=== PATIENT | female | born 1955 | race Caucasian/White ===

== ENCOUNTER 2018-10-27 14:07 | Outpatient (CLI) | payer OTHER | END 2018-10-27 14:10 | disposition home or self-care (01) | LOC: SONOGRAMA 14:07 | DX: S43.012A Anterior subluxation of left humerus, initial encounter (principal) ==

== ENCOUNTER 2019-01-06 13:15 | Outpatient (CLI) | payer OTHER | END 2019-01-06 13:18 | disposition home or self-care (01) | LOC: LAB 13:15 → CERTIFICAD 13:15 | DX: Z11.3 Encounter for screening for infections with a predominantly sexual mode of transmission (principal) ==

== ENCOUNTER 2019-02-10 15:12 | Outpatient (CLI) | payer OTHER | END 2019-02-10 15:22 | disposition home or self-care (01) | LOC: LAB 15:12 | DX: Z11.59 Encounter for screening for other viral diseases (principal) ==

== ENCOUNTER → 2019-08-25 | Outpatient (CLI) | payer OTHER | END | disposition home or self-care (01) | LOC: MAMO-SONO 10:30 | DX: Z12.31 Encounter for screening mammogram for malignant neoplasm of breast (principal) ==

== ENCOUNTER 2019-08-27 12:57 | Outpatient (CLI) | payer OTHER | END 2019-08-27 13:04 | disposition home or self-care (01) | LOC: NUCLEAR 12:57 | DX: M81.0 Age-related osteoporosis without current pathological fracture (principal) ==

== ENCOUNTER 2020-08-18 10:00 | Outpatient (CLI) | payer OTHER | END 2020-08-18 15:00 | disposition home or self-care (01) | LOC: PPH VACUNA 10:00 | DX: Z23 Encounter for immunization (principal) ==

== ENCOUNTER 2020-11-14 10:28 | Outpatient (CLI) | payer OTHER | END 2020-11-14 15:00 | disposition home or self-care (01) | LOC: PPH VACUNA 10:28 | DX: Z23 Encounter for immunization (principal) ==

== ENCOUNTER → 2021-03-27 12:48 | Outpatient (CLI) | payer OTHER | END | disposition home or self-care (01) | LOC: LAB 12:48 | DX: U07.1 COVID-19 (principal) ==

== ENCOUNTER 2021-08-27 08:00 | Outpatient (CLI) | payer OTHER | END 2021-08-27 08:30 | disposition home or self-care (01) | LOC: PPH VACUNA 08:00 | PROVIDERS: ATTEND Emergency Medicine Pediatric Emergency Medicine | DX: Z23 Encounter for immunization (principal) ==

== ENCOUNTER → 2021-11-21 12:32 | Outpatient (CLI) | payer OTHER | END | disposition home or self-care (01) | LOC: LAB 12:32 | PROVIDERS: ATTEND Internal Medicine | DX: Z20.828 Contact with and (suspected) exposure to other viral communicable diseases (principal) ==

== ENCOUNTER 2021-11-23 12:09 | Outpatient (CLI) | payer OTHER | END 2021-11-23 12:19 | disposition home or self-care (01) | LOC: LAB 12:09 | DX: Z20.828 Contact with and (suspected) exposure to other viral communicable diseases (principal); U07.1 COVID-19 ==

== ENCOUNTER 2021-11-29 12:35 | Outpatient (CLI) | payer OTHER | END 2021-11-29 12:38 | disposition home or self-care (01) | LOC: LAB 12:35 | DX: Z20.828 Contact with and (suspected) exposure to other viral communicable diseases (principal) ==

== ENCOUNTER 2022-03-01 08:00 | Outpatient (CLI) | payer OTHER | END 2022-03-01 08:30 | disposition home or self-care (01) | LOC: PPH VACUNA 08:00 | PROVIDERS: ATTEND Emergency Medicine Pediatric Emergency Medicine | DX: Z23 Encounter for immunization (principal) ==

== ENCOUNTER 2022-08-12 10:54 | Outpatient (CLI) | payer OTHER | END 2022-08-12 11:00 | disposition home or self-care (01) | LOC: PPH VACUNA 10:54 | PROVIDERS: ATTEND Emergency Medicine Pediatric Emergency Medicine | DX: Z23 Encounter for immunization (principal) ==

== ENCOUNTER 2022-08-14 08:00 | Outpatient (CLI) | payer OTHER | END 2022-08-14 08:05 | disposition home or self-care (01) | LOC: PPH VACUNA 08:00 | PROVIDERS: ATTEND Emergency Medicine Pediatric Emergency Medicine | DX: Z23 Encounter for immunization (principal) ==

== ENCOUNTER 2023-01-09 09:59 | Outpatient (CLI) | payer OTHER | END 2023-01-09 10:05 | disposition home or self-care (01) | LOC: NUCLEAR 09:59 | PROVIDERS: ATTEND Emergency Medicine | DX: I87.013 Postthrombotic syndrome with ulcer of bilateral lower extremity (principal) ==

== ENCOUNTER 2023-01-09 11:18 | Outpatient (CLI) | payer OTHER | END 2023-01-09 11:30 | disposition home or self-care (01) | LOC: MRI 11:18 | PROVIDERS: ATTEND Radiology Diagnostic Radiology | DX: M79.651 Pain in right thigh (principal); M25.561 Pain in right knee; M79.661 Pain in right lower leg; G89.29 Other chronic pain | CPT/HCPCS: 73718; 73721 ==

== ENCOUNTER 2024-01-26 10:45 | Outpatient (CLI) | payer OTHER | END 2024-01-26 10:50 | disposition home or self-care (01) | LOC: NUCLEAR 10:45 | PROVIDERS: ATTEND Internal Medicine | DX: M81.0 Age-related osteoporosis without current pathological fracture (principal) ==

== ENCOUNTER 2024-01-26 13:49 | Outpatient (CLI) | payer OTHER | END 2024-01-26 13:54 | disposition home or self-care (01) | LOC: MAMO-SONO 13:49 | PROVIDERS: ATTEND Internal Medicine | DX: Z12.31 Encounter for screening mammogram for malignant neoplasm of breast (principal) ==

== ENCOUNTER 2024-11-01 09:48 | Outpatient (CLI) | payer OTHER | END 2024-11-01 09:51 | disposition home or self-care (01) | LOC: SONOGRAMA 09:48 | PROVIDERS: ATTEND Obstetrics & Gynecology | DX: R93.5 Abnormal findings on diagnostic imaging of other abdominal regions, including retroperitoneum (principal) ==

== ENCOUNTER 2025-11-02 13:43 | Outpatient (CLI) | payer OTHER | END 2025-11-02 13:46 | disposition home or self-care (01) | LOC: MAMO-SONO 13:43 | PROVIDERS: ATTEND Obstetrics & Gynecology | DX: N60.11 Diffuse cystic mastopathy of right breast (principal); N60.12 Diffuse cystic mastopathy of left breast; Z12.31 Encounter for screening mammogram for malignant neoplasm of breast ==